=== PATIENT | female | born 1950 | race Caucasian/White ===

== ENCOUNTER → 2020-10-07 | Outpatient (CLI) | payer OTHER, MEDICARE ==
[~2020-10-07] MED LIST: ALAVERT D-12 A1 EACH PO; ALLOPURINOL 30300 M1 PO; ASA81BEC PO; BENADRYL25 MG PO; BIOTIN1 MG PO; CHLORTHALIDONE25 MG PO; IMDUR 30 MG TAB30 M1 PO; KLOR-CON M2020 MEQ PO; LEVOTHYROXINE100 MCG PO; MELOXICAM15 MG PO; NITROSTAT0.4 MG SUBLING; PRALUENT P150 MG/1 M SUBQ; PROBIOTIC1 EAC7 PO; PROTONIX40 M2 PO; ROSUVASTATIN CA10 MG PO; TRAMADOL 50 MG50 MG PO
== END ==
LOC: LAB 09:26
PROVIDERS: ATTEND Orthopaedic Surgery Sports Medicine
DX: Z01.812 Encounter for preprocedural laboratory examination (principal); Z20.822 Contact with and (suspected) exposure to COVID-19

== ENCOUNTER 2020-10-11 10:18 | Observation (INO) | payer OTHER, MEDICARE ==
[~2020-10-11] VITALS: Ht 154.9 cm; Wt 71.7 kg
[2020-10-11 10:50] VITALS: BP 127/81
[2020-10-11 11:45] LABS: CALCIUM 9.6 mg/dL (8.5-10.1); CREATININE 0.8 mg/dL (0.6-1.0)
[2020-10-11 18:26] VITALS: BP 108/41
[2020-10-11 20:12] VITALS: BP 107/57
[2020-10-12 00:58] VITALS: BP 107/57
--- NOTE | 2020-10-12 03:52 | NUR ---
Pt admitted with right harmstring tendon repair/debridement. A/OX4,VSS. C/o pain to site especially with movement. Dsg in place dermabond/telfa/tegaderm. Pt is continent voiding per bedpan at this time d/t spinal block. Denies any numbness or tingling. Wears a CPAP @ home but don't want one here,using O2 @ 2L/NC. SCDs/Armando hose in place. Pt reports when she takes 2 Tramdols she has to have Benadryl d/t itching. Medicated per EMAR and resting quietly at this time. Ice pack provided prn.
[2020-10-12 04:35] VITALS: BP 107/47
[2020-10-12 07:35] VITALS: BP 109/57
--- NOTE | 2020-10-12 10:57 | NUR ---
PT ADMTTED RELATED TO RIGHT HAMSTRING TENDON REPAIR. CM REVIEWED CHART AND SPOKE WITH CARE TEAM. CM MET WITH PT AND SPOUSE AT BEDSIDE THIS DAY. PT IS A&O X 4. CM ROLE INTRODUCED. PT INDICATED SHE AND SPOUSE RESIDE IN A HOUSE WITH 6 STEPS TO ETNER AND NO STEPS INSIDE. PT INDICATED THAT THEY HAVE A R PLATFORM FWW, WC, SHOWER CHAIR, AND STOOL RISER FOR HOME USE. PT INDICATED THAT SHE IS SET UP WITH [facility] WITH A SOC SUNDAY. CM TO CALL AND FAX ORDERS IF NEEDED. 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 PT TO BE TOUCH DOWN WB WEEKS 1-4, PARTIAL WB WEEKS 5-6, THEN PROGRESS TO FULL. THERAPY WORKED WITH PT AND HAS BEEN CLEARED TO DC HOME WITH DME AND HH SERVICES THIS DAY. PT'S SPOUSE TO TRANSPORT HOME.
[2020-10-12 11:08] VITALS: BP 109/57
[2020-10-12 11:24] VITALS: BP 109/57
--- NOTE | 2020-10-12 12:56 | NUR ---
Assumed pt care at 7am.Pt in bed resting and waiting for breakfast.Assessment completed.vss.Bed duncan given per pt request, voided approx. 300ml clear urine. Pericare given.Dr Oh veterinary anatomist rounded on pt and dc order noted. Dc summary compile and reviewed with pt and spouse.electrical construction project manager assisted pt in seeting up home health.Saline lock dc'd.Pt ate lunch and dc home in [place] accompanied by and funnel coater at 1300.
--- NOTE | 2020-10-19 15:52 | O ---
[address] [address] OPERATIVE REPORT Name: ZACH MCGOVERN Room #: 453-P [facility]#: [id number] Admission: 10/11/20 Attend Phys: Lebron Bustillos MD Discharge: 10/12/20 Date of : 52 Report #: [id number] THIS REPORT FOR: cc: Amos Castro Reuel M. DO McCabe, Michael P. MD ~ DATE OF SERVICE: 10/11/2020 SERVICE: Orthopedics. FACILITY: [facility]. SURGEON: Lebron Bustillos MD COMMERCIAL REPORTER: Colleen Palomares NP. INDICATION FOR COMMERCIAL REPORTER: Retraction, assistance with the exposure and the repair. PREOPERATIVE DIAGNOSES: 1. Right posterior hip pain. 2. 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 POSTOPERATIVE DIAGNOSES: 1. Right posterior hip pain. 2. 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 PROCEDURE: Right hip open hamstring tendon debridement with primary repair. COMPLICATIONS: None. DRAINS: None. SPECIMENS: None. ANESTHESIA: General. FINDINGS: 1. Successful debridement with primary repair. 2. Excel ReelX suture anchor with 2 suture tapes utilized for repair. 3. Being postoperative protocol: Touchdown weightbearing with a walker x 4 weeks, then progress to partial weightbearing for weeks 5 and 6 and then full weightbearing at that point. [address] [address] OPERATIVE REPORT Name: ZACH MCGOVERN [id number] Admission: 10/11/20 Attend Phys: Lebron Bustillos MD Discharge: 10/12/20 Date of : 52 Report #: [id number] HISTORY: The patient is a 69-year-old female with a history of right-sided buttock pain that had been treated with rest, activity modifications, physical therapy targeted injections, oral medicines modalities, all without sufficient relief. She had an MRI, which showed an intrasubstance partial tear of the proximal hamstring tendon. We had discussions about further percutaneous base procedures with referral for such procedures versus repair and she wished to move forward with surgical repair. She understood the postoperative restrictions. Risks, benefits, alternatives, and indication of surgery discussed with her in detail. Risks include but not limited to pain, bleeding, infection, injury nerves or blood vessels, persistent pain despite surgical intervention, failure of the repair, need for further surgery as well as complications related to anesthesia such as stroke, heart attack, pulmonary complications, thromboembolic disease and . Despite the risks, she wished to proceed. PROCEDURE IN DETAIL: After the right lower extremity was correctly identified as the operative extremity, the patient was taken to the operating room where general anesthesia was induced without complications. She was turned into the prone position with right side exposed, padded appropriately. Prophylactic antibiotics were administered at appropriate time. Right leg was then prepped and draped in standard sterile fashion. Timeout of procedure performed. A transverse incision was made just proximal to the gluteal fold and full-thickness skin flaps were developed. Dissection was taken down to the gluteal muscle, which was retracted superiorly. The hamstring muscle belly was followed up to the ischial tuberosity and then the hamstring tendon attachment was visualized. The bursa was incised and then debrided. There was a small amount of bursal fluid, which egressed and was suctioned. Blunt retractors were placed on either side of ischial tuberosity and then we dissected longitudinally in the tendon, opened up the tendon itself to get to the deeper layer of the tendon where the pathology existed and then debrided the tendon and debrided and decorticated the tuberosity. I then placed 2 stitches within two Excel suture tape sutures with a modified Tanner type stitch on either side in order to close down the repair to the tuberosity. The bone distally was rather soft and the initial anchor would not hold adequately, so we switched to a ReelX anchor, moved slightly up more to the posterior side of the tuberosity to a Jessica cortical bone and then impacted this into position and then deployed the ReelX tensioning mechanism, which provided good compression of the soft tissues against the tuberosity. The decortication did create a nice bleeding bed of bone to enhance the healing and repair features. The retained suture within the anchor was then used to oversew at the site of the repair and then we thoroughly irrigated and closed the wound over a gram of vancomycin powder due to the proximity to the rectum, 2-0 Vicryl followed by running subcuticular 3-0 Monocryl were used and then Dermabond was used to seal off the wound and it was [address] [address] OPERATIVE REPORT Name: ZACH MCGOVERN Room #: 453-P [facility] Laura Hunt#: [id number] Admission: 10/11/20 Attend Phys: Lebron Bustillos MD Discharge: 10/12/20 Date of : 52 Report #: [id number] allowed to dry before dressing was applied in order to minimize any risk of postoperative infection again due to the proximity to the perineum and the rectum. The patient was awakened from anesthesia and taken to recovery room in stable condition. There were no complications and all counts were recorded correct. Postoperative plan will be for touchdown weightbearing for weeks 1 through 4, then partial weightbearing for 5 and 6 and then progression to full weightbearing activities per protocol. At that point, she has specific restrictions of no combined knee extension and hip flexion such as typical hamstring muscle stretch for 6 weeks while this heals. <ELECTRONICALLY SIGNED> By: Lebron Bustillos MD 10/19/20 1552 [id number] Lebron Bustillos MD /nt
== END 2020-10-12 14:59 | disposition home or self-care (01) ==
LOC: TBA 10:18 → OR 10:18 → 4W 18:14 → OR 18:15 → 4W 18:15 → OR 10-14 13:53
PROVIDERS: ADMIT Orthopaedic Surgery Sports Medicine; ATTEND Orthopaedic Surgery Sports Medicine
DX: S76.311A Strain of muscle, fascia and tendon of the posterior muscle group at thigh level, right thigh, initial encounter (principal); S76.011A Strain of muscle, fascia and tendon of right hip, initial encounter; M76.899 Other specified enthesopathies of unspecified lower limb, excluding foot; M25.562 Pain in left knee; Z88.8 Allergy status to other drugs, medicaments and biological substances; Z88.5 Allergy status to narcotic agent; Z88.1 Allergy status to other antibiotic agents; X58.XXXA Exposure to other specified factors, initial encounter; Y93.89 Activity, other specified; Y92.89 Other specified places as the place of occurrence of the external cause; Y99.8 Other external cause status
CPT/HCPCS: 50010; 50101; 50386; 50417; 54118; 56526; 56527; 56528; 57103; 57446; 58606; 62110; 62900; 70005